=== PATIENT | female | born 1970 | race Caucasian/White ===

== ENCOUNTER 2022-08-07 09:15 | Day surgery (SDC) | payer BC, SELFPAY ==
[2022-08-01 09:48] VITALS: BMI 26.6
--- NOTE | 2022-08-04 13:20 | P.CONAN_ITS ---
Documented by User: Carly Fields NP 08/04/22 13:26 HPI - Anesthesia Eval Consult details Narrative: 51yo F for Colonoscopy Chronic opioid - fentanyl patch Hx of sudden onsent peripheral edema 12/2021. Negative cardiac w/u. Resolved with leg elevation. PMFSH Active Problems Active Problems: All Active Problems (Updated 08/01/22 @ 10:13 by Tatyana Valerio RN) Hemorrhoids (Acute) GI bleeding (Acute) Encounter for HCV screening test for low risk patient (Acute) Past Medical History Medical History Anxiety Depression Dizziness Heart murmur Hx of edema Hypertension Low back pain Myofascial pain Venous insufficiency Family History Family History Mother Ovarian cancer Heart attack Spinal stenosis Alzheimer disease Father Heart disease Renal failure Diabetes Surgical History Surgical History H/O shoulder surgery S/P section Social History Social History Do you presently have visiting nurse or other home services: No Unable to assess alcohol history related to: Unknown Patient Tobacco Use Status: Former Tobacco user Quit Date: 2011 Tobacco use type: Cigarette Use of substances other than those prescribed or required for medical reasons: No Have you been hit, kicked, punched, or otherwise hurt by someone within the past year? If so, by whom?: No Are you DNR?: No Advance Directives: No Advance Directives Information Provided: Yes Recently lost weight without trying: Yes How much weight loss: 24-33 pounds Eating poorly because of decreased appetite: Yes Nutrition screen score: 6 Meds Allergies Allergy/AdvReac Type Severity Reaction Status Date / Time Sulfa (Sulfonamide Allergy Severe HIVES Verified 08/01/22 09:46 Antibiotics) Home Medications Medication Instructions Recorded Confirmed Last Taken Type alprazolam 0.5 mg tablet 0.5 mg PO BID PRN Anxiety 07/15/22 08/01/22 Unknown History bupropion HCl 150 mg tablet,12 hr 150 mg PO QAM 07/15/22 08/01/22 Unknown History sustained-release diclofenac sodium 1 % topical gel g topical QID 07/15/22 Unknown History ethacrynic acid 25 mg tablet 25 mg PO BID PRN edema 07/15/22 08/01/22 Unknown History fentanyl 75 mcg/hr transdermal 0.25 patch topical Q OTHER DAY 07/15/22 08/01/22 Unknown History patch metoprolol succinate 100 mg 100 mg PO DAILY 07/15/22 08/01/22 Unknown History tablet,extended release 24 hr naloxone 4 mg/actuation nasal 0 spray intranasal 07/15/22 Unknown History spray (Narcan) venlafaxine 225 mg tablet,extended 225 mg PO DAILY 07/15/22 08/01/22 Unknown History release 24 hr Exam Exam Date and Time: August 04, 2022 1320 Height,Weight and Vital Signs: Height 5 ft 7 in Weight 77.111 kg Narrative Narrative: EKG 02/2022 NSR, good r wave progression, normal axis intervals, no ST-T wave changes ECHO 01/2022 1. LV size is normal 2. LV wall thickness is normal 3. Overall LV systolic function is low-normal with EF 50-55% 4. Diastolic filling pattern is normal 5. LA size is normal 6. RV systolic function is normal 7. No aortic stenosis 8. Trace mitral regurg 9. No evidence of pulmonary htn 10. No previous echo for comparison Assessment and Plan Assessment Anesthesia Assessment: Chart Reviewed Documented by User: Diane Amaya MD 08/07/22 12:01 [facility] Past Medical History Medical History Anxiety Depression Dizziness Heart murmur Hx of edema Hypertension Low back pain Myofascial pain Venous insufficiency Family History Family History Mother Ovarian cancer Heart attack Spinal stenosis Alzheimer disease Father Heart disease Renal failure Diabetes Surgical History Surgical History H/O shoulder surgery S/P section History of Problems with Anesthesia: No Social History Social History Do you presently have visiting nurse or other home services: No Unable to assess alcohol history related to: Unknown Patient Tobacco Use Status: Former Tobacco user Quit Date: 2011 Tobacco use type: Cigarette Use of substances other than those prescribed or required for medical reasons: No Have you been hit, kicked, punched, or otherwise hurt by someone within the past year? If so, by whom?: No Are you DNR?: No Advance Directives: No Advance Directives Information Provided: Yes Recently lost weight without trying: Yes How much weight loss: 24-33 pounds Eating poorly because of decreased appetite: Yes Nutrition screen score: 6 Meds Allergies Allergy/AdvReac Type Severity Reaction Status Date / Time Sulfa (Sulfonamide Allergy Severe HIVES Verified 08/01/22 09:46 Antibiotics) Home Medications Medication Instructions Recorded Confirmed Last Taken Type alprazolam 0.5 mg tablet 0.5 mg PO BID PRN Anxiety 07/15/22 08/01/22 Unknown History bupropion HCl 150 mg tablet,12 hr 150 mg PO QAM 07/15/22 08/01/22 Unknown History sustained-release diclofenac sodium 1 % topical gel g topical QID 07/15/22 Unknown History ethacrynic acid 25 mg tablet 25 mg PO BID PRN edema 07/15/22 08/01/22 Unknown History fentanyl 75 mcg/hr transdermal 0.25 patch topical Q OTHER DAY 07/15/22 08/01/22 Unknown History patch metoprolol succinate 100 mg 100 mg PO DAILY 07/15/22 08/01/22 Unknown History tablet,extended release 24 hr naloxone 4 mg/actuation nasal 0 spray intranasal 07/15/22 Unknown History spray (Narcan) venlafaxine 225 mg tablet,extended 225 mg PO DAILY 07/15/22 08/01/22 Unknown History release 24 hr Exam Airway Mallampati Class: II TM Dist: >3cm Neck ROM: Full Loose/Missing/Broken Teeth: No Heart: RRR Lungs: CTA Assessment and Plan Assessment Anesthesia Assessment: Anesthesia Plan Discussed Final Anesthetic Review History of Problems with Anesthesia: No NPO: Yes ASA Class: II Final Preanesthetic Review: Meds/Allgs Chart Reviewed, Consent Obtained/Reviewed and Anes Risks/Benef Reviewed Patient Risk: Low Procedure Risk: Low Anesthetic Plan Anesthetic Plan: MAC: Disposition: Standard PACU
[2022-08-07 09:49] VITALS: BP 121/68; PULSE 76; RESP 16; TEMP 37.3; O2SAT 99
[2022-08-07] MEDS: Lactated Ringers 1,000 ML 50 ML IVCONT (10:12)
--- NOTE | 2022-08-07 10:16 | MHC.SHP ---
Pre-Procedural Eval Section A Date of Service: 08/07/22 The History & Physical has been completed within 30 days and I have reviewed it.: Yes Section B Chief Complaint: Lower GI bleeding Allergies: Allergies Allergy/AdvReac Type Severity Reaction Status Date / Time Sulfa (Sulfonamide Allergy Severe HIVES Verified 08/01/22 09:46 Antibiotics) Plan Diagnosis/Plan: Unchanged I have reviewed the history and physical and performed a pertinent physical examination on my patient. No changes have occurred unless specified.
--- NOTE | 2022-08-07 10:21 | P.OP_ITS ---
Operative Note Operative Note Date of Service: 08/07/22 Narrative: Procedure: Colonoscopy Indication: Lower GI bleeding Endoscopist: Gayathri Livingston MD Anesthesia Provider: Dr Diane Amaya Anesthesia type: MAC Instrument: Olympus [id number]-[id number] Consent: Indication, risks vs benefits, and alternatives were discussed with the patient who gave written informed consent to proceed. EKG, pulse, pulse oximetry and blood pressure were monitored throughout the procedure. Please see anesthesia flowsheet. Procedure: The patient was brought to the procedure room and placed in the left lateral decubitus position. IV medications were administered by the anesthesia provider in attendance. A digital rectal exam was performed which was abnormal due to finding of hard palpable nodularity in the rectum. The colonoscope was then inserted through the anus and advanced through the colon to the cecum at 100 cm. Mucosa was carefully examined under high definition white light as the instrument was slowly withdrawn in a retrograde panoramic fashion. Retroflexion was performed in rectum. The procedure was somewhat difficult due to significant looping. 4 hand abdominal pressure was utilised to get to cecum. There were no immediate obvious complications. The quality of the prep was BBPS: 2+3+3 = adequate Withdrawal time 14 minutes. Limitations: No limitations. Findings: Mucosa: Large 6 cm villous friable mass seen in rectum from 2 to 8 cm. The mass was not obstructing and scope was easily traversed by it. Multiple cold forceps biopsies were taken. Abnormal mucosa with prominent lymphoid follicles with few erosions noted in rectosigmoid starting from 8 cm extending to 20 cm. Cold forceps biopsies were obtained. Protruding lesions: * 1 sessile polyp of size 2 mm in sigmoid colon. * Medium internal hemorrhoids [without] stigmata of recent bleeding. Impression: 1. Rectal mass (biopsy) 2. Abnormal mucosa in rectosigmoid (biopsy) 3. Total of 1 polyp removed from sigmoid colon. 4. Internal hemorrhoids Recommendations: - Appearance highly suspicious for a malignant mass. Follow path results. - Urgent surgery referral has been requested. Findings were reviewed with the patient thoroughly.
[2022-08-07 11:20] VITALS: BP 102/51; PULSE 82; RESP 16; TEMP 36.3; O2SAT 99
[2022-08-07 11:35] VITALS: BP 95/34; PULSE 77; RESP 16; TEMP 36.7; O2SAT 99
[2022-08-07 11:50] VITALS: BP 112/59; PULSE 77; RESP 16; TEMP 36.7; O2SAT 99
== END 2022-08-07 12:20 | disposition home or self-care (01) ==
PROVIDERS: PCP Internal Medicine; Visit Provider Internal Medicine
PROC: 0DJD8ZZ Inspection of Lower Intestinal Tract, Via Natural or Artificial Opening Endoscopic (ICD-10-PCS; CPT 45378; principal; 2022-08-07 10:30)
DX: K92.2 Gastrointestinal hemorrhage, unspecified (principal); D01.2 Carcinoma in situ of rectum; K63.89 Other specified diseases of intestine; K63.5 Polyp of colon; K64.8 Other hemorrhoids; Z88.2 Allergy status to sulfonamides
CPT/HCPCS: 45380; 88305; 88341; 88342; J2250

== ENCOUNTER → 2022-08-13 10:15 | Outpatient (BNVA) | payer BC, SELFPAY | PROVIDERS: PCP Internal Medicine; Referring Provider Internal Medicine; Visit Provider Surgery | DX: K62.89 Other specified diseases of anus and rectum (principal) | CPT/HCPCS: 46600 ==

== ENCOUNTER 2022-08-20 13:47 | Outpatient (REF) | payer BC, SELFPAY ==
[2022-08-20 14:41] LABS: Hematocrit 38.7 % (37.0-47.0); Hemoglobin 12.5 g/dl (12.0-16.0); Mean Corpuscular HGB Conc 32.3 g/dl (31.0-35.0); Mean Corpuscular Hemoglobin 29.7 pg (27.0-33.0); Mean Corpuscular Volume 91.9 fL (80.0-98.0); Mean Platelet Volume 10.1 fL (9.4-12.3); Platelet Count 291 X10*3/uL (160-400); Red Blood Count 4.21 X10*6/uL (4.20-5.50); Red Cell Distribution Width 12.3 % (11.0-16.0); White Blood Count 6.4 X10*3/uL (4.8-10.8)
[2022-08-20 15:09] LABS: Iron 38 mcg/dL (30-160); Percent Iron Saturation 12 % (15-50); Total Iron Binding Capacity 313 mcg/dL (228-428); Unsaturated Iron Binding 275 ug/dL
[2022-08-20 15:29] LABS: Ferritin 79 ng/mL (10-250)
[2022-08-22 09:16] LABS: HIV AB/AG Nonreactive (Nonreactive); HIV Num 1 0.08 S/CO (0.00-0.99); ~HepC Num1 0.13 S/CO (0.00-0.79); ~Hepatitis C Antibody Nonreactive (Nonreactive)
== END 2022-08-20 13:48 | disposition home or self-care (01) ==
LOC: HO.LAB 13:47
PROVIDERS: PCP Internal Medicine; Visit Provider Internal Medicine
DX: Z11.59 Encounter for screening for other viral diseases (principal); Z11.4 Encounter for screening for human immunodeficiency virus [HIV]; K92.2 Gastrointestinal hemorrhage, unspecified; D01.3 Carcinoma in situ of anus and anal canal
CPT/HCPCS: 36415; 82728; 83540; 85027; 86803; 87389

== ENCOUNTER 2022-08-27 14:26 | Outpatient (REF) | payer BC, SELFPAY ==
[2022-08-27 15:57] LABS: Blood Urea Nitrogen 15 mg/dL (9-16); Carcinoembryonic Antigen < 1.73 ng/mL; Estimated Glomerular Filt Rate > 60
== END 2022-08-27 14:27 | disposition home or self-care (01) ==
LOC: HO.LAB 14:26
PROVIDERS: PCP Internal Medicine; Visit Provider Surgery
DX: K62.89 Other specified diseases of anus and rectum (principal); D01.3 Carcinoma in situ of anus and anal canal
CPT/HCPCS: 36415; 82378; 82565; 84520

== ENCOUNTER 2022-08-28 13:05 | Outpatient (REF) | payer BC, SELFPAY ==
--- NOTE | ~2022-08-28 | CT_ITS ---
Indication: Disease of the anus and rectum. EXAMINATION: Contrast enhanced CT of the chest abdomen pelvis. This CT examination was performed using dose optimization techniques as appropriate, variously including the following: *Automated exposure control *Adjustment of mA and/or kV according to patient size (this includes techniques or standardized protocols for targeted exams where dose is matched to indication/reason for exam; i.e. extremities or head) *Use of iterative reconstruction technique. Radiation dose 484 and 152. Axial imaging with coronal and sagittal reformatted images. 85 mL Omnipaque 350. Findings; The thoracic inlet shows nodular appearing thyroid. Ultrasound recommended. Otherwise the thoracic inlet is within normal limits. Some shotty nodes in the axillary regions are noted. No bulky adenopathy. Centrally coronary calcification is seen. There is no bulky adenopathy here. Imaging of the lung olvera. Right lung; There is no significant infiltrate or effusion here. Granuloma calcified in the right upper lung is noted. Atelectasis or scarring in the midlung anterior on the right. Pleural-based nodule measuring 3 mm on image 351 of series 7. 3 mm nodule on image 358. Mild right basilar atelectasis or scarring. Other small 1 to 2 mm nodules are noted. Left lung; No significant infiltrate or effusion. Mild left basilar scarring or atelectasis. The bone windows in the chest does not show suspicion for a bony lesion. Upper abdomen; Liver be within normal limits. The spleen is within normal limits. The adrenals show some minimal nodularity in the left adrenal. 5 mm. May be incidental. Attention to follow-up. There is also mild fullness of the left adrenal more superiorly. An underlying nodule here cannot be excluded measuring 8 mm. The kidneys are in the nephrographic phase. The region the pancreas is felt to be within normal limits. The adjacent spleen partially calcified rounded structure measuring 1.7 x 1.7 cm may represent aneurysmal change of the splenic artery. Bladder is decompressed. The bowel pattern is show fullness in soft tissue in the region of the rectosigmoid.. Lesion here of course could not be excluded. The bowel pattern is otherwise nonobstructing. Colonic stool is noted moderate. The abdominal wall is felt to be within normal limits. Mildly prominent uterine structure for age in the pelvis. No free fluid. There is no bulky adenopathy. There are a few mildly prominent nodes. In the left pelvic sidewall node measuring 6 mm. There are also some prominent nodes in the external iliac chain on the left. There is a density on image 68 of 101 on the left which may well be related to the uterine ligament. This could represent ovarian structure in the spleen. Some mildly prominent adenopathy in the right iliac chain but again no pathologic enlargement is present at this time. In the perirectal region several small rounded areas of density may represent nodes. For example on image 75 there is a 6 mm structure which likely represents a small lymph node. Otherwise the vasculature is felt to be intact. Review of the bone windows demonstrates a small sclerotic lesion in the left iliac bone. There is also a sclerotic region in the right iliac bone. This measures 1.2 cm. Eti[address] indeterminate here. CT/CT abdomen pelvis w IV con IMPRESSION: Findings as described in detail above. The lungs some small nodules are noted. These may well be incidental. Of course early metastatic disease cannot be excluded. Attention to follow-up In the abdomen pelvis soft tissue fullness in the rectosigmoid could represent tumor. Correlation recommended clinically. There are also some nodes in the pelvis as described. Iliac perirectal fat and obturator regions. These are most prominent in the iliac regions but again not felt to be pathologically large cyst at this time. Still early metastatic disease in these areas needs to be considered and cannot be excluded. Mildly nodular left adrenal gland again may be incidental. Again early malignancy or metastatic disease cannot be excluded. Attention to follow-up. A few sclerotic lesions in the iliac bones of uncertain etiology. Again may be incidental. But see cannot be excluded... Consider bone scan if further evaluation is warranted at this time versus follow-up Calcified vascular structure adjacent the spleen may represent a 1.7 cm partially calcified splenic artery aneurysm. Recommend interventional radiology consultation
[2022-08-28] MEDS: iohexoL 350 MG/ML 100 ML INFUS..BTL IV (13:55)
== END 2022-08-28 13:06 | disposition home or self-care (01) ==
LOC: HO.CT 13:05
PROVIDERS: Visit Provider Surgery
DX: K62.89 Other specified diseases of anus and rectum (principal); R91.8 Other nonspecific abnormal finding of lung field; R93.89 Abnormal findings on diagnostic imaging of other specified body structures; R93.5 Abnormal findings on diagnostic imaging of other abdominal regions, including retroperitoneum
CPT/HCPCS: 71260; 74177; Q9967

== ENCOUNTER 2023-08-10 13:28 | Outpatient (AMB) | payer BC, SELFPAY ==
--- NOTE | 2023-08-10 13:33 | A.OFFVIS_ITS ---
Intake Vital Signs 08/10/23 13:36 Height 5 ft 7 in Weight 163 lb 2.273 oz BMI 25.5 BP 109/61 Blood Pressure Location Lt brachial Position Sitting Pulse 90 Intake Visit Reasons: follow up AIN grade III (+) Positive for C-Diff Intake Note: Diane presents in the office as a follow up. CC: She would like to discuss concerns with the Dr. 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 Initial visit: Patient states she has had hemorrhoids since bearing children and has noted intermittent bleeding. For the past 2y she has noted ext hemorrhoid that she can palpate. Now for a year, she has been having more symptoms - increased pain on defecation and bleeding. Unless her stools are very soft, she has notices blood on top of the stool as well as on wiping. No rectal pain on sitting or laying down. No hx of anal trauma. No fam hx of CRC. She has never had a colonoscopy. Colonoscopy 07/2022: Mucosa: Large 6 cm villous friable mass seen in rectum from 2 to 8 cm. The mass was not obstructing and scope was easily traversed by it. Multiple cold forceps biopsies were taken. Abnormal mucosa with prominent lymphoid follicles with few erosions noted in rectosigmoid starting from 8 cm extending to 20 cm. Cold forceps biopsies were obtained. Protruding lesions: * 1 sessile polyp of size 2 mm in sigmoid colon. Cold forceps polypectomy was performed. The polyp was vompletely removed and retrieved. * Medium internal hemorrhoids without stigmata of recent bleeding. Path: A.? Colon, sigmoid, polypectomy:? Hyperplastic mucosal polyp. B.? Colon, sigmoid, biopsy:? Colonic mucosa with prominent lymphoid aggregates; no dysplasia seen. C.? 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 Today: Symptoms unchanged from before. She had an MRI pelvis for further characterization of this lesion, last Thursday. Results not available yet. Patient is quite anxious about prognosis and treatment options. 08/10/23: Pt returns to follow up after being managed at [facility] earlier this year for what was determined to be anal SCC. Was referred to [facility] for tx. Had chemo-XRT in November 2022. Gets followed by Dr Epstein (Onc) and Dr Luna (Rad-Onc). Also sees Dr Krishnamurthy from colorectal ca for surveillance. Pt here today primarily for fecal incontinence. Reports watery BMs with strong odor x multiple times a day that started in June - was found to have C Diff. Took PO Vancomycin x 2 weeks which resolved the sx. Prior the CDI, had fecal incontinence that started in February as occasional episodes but now notices it on a daily basis. Unable to leave home without dep ends which she changes 7-8 times a day. No blood in stool. Discharge or defecation is not painful. Per documentation, had anoscopy in February 2023 with colorectal that did not show any residual disease. She also reports having an upcoming CT through Onc next month. [facility] Medical History Anxiety Depression Dizziness Heart murmur Hx of edema Hypertension Low back pain Myofascial pain Venous insufficiency Surgical History H/O shoulder surgery S/P section Family History Mother Ovarian cancer Heart attack Spinal stenosis Alzheimer disease Father Heart disease Renal failure Diabetes Social History Do you presently have visiting nurse or other home services: No Unable to assess alcohol history related to: Unknown Patient Tobacco Use Status: Former Tobacco user Quit Date: 2011 Tobacco use type: Cigarette Review of Systems Const All systems reviewed & are unremarkable except as noted in HPI and below Physical Exam Vital Signs: Last Vital Signs Pulse 90 08/10/23 13:36 BP 109/61 08/10/23 13:36 BMI result Body Mass Index 25.5 Gen appear: No acute distress, well nourished HEENT: no icterus, no cervical lymphadenopathy Chest: No overt resp distress CVS: S1/S2, regular Abd: soft, nontender, nondistended Rectal: pt declines Psych: Stable affect, answering questions appropriately Neuro: A/Ox3 noted to move all extremities spontaneously Ext: no peripheral edema Assessment & Plan Assessment & Plan (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 Typically radiation therapy is sphincter sparing however given how low her tumor was (2 cm from anal verge) could have been affected (rad onc notes not available) other Ddx would be rectal hypersensitivity although that typically leads to urge incontinence and not passive FI; and radiation proctitis although typically assoc with urgency and bleeding. Management would mostly be directed towards symptomatic management with bulking agents, antidiarrheals and timed rectal evacuation. Plan: - Start soluble fiber such as psyllium or citrucel/metamucil - 1tsp mixed in water to increase to 1tbsp after a week - Timed enema in AM to empty out rectum - can even be used on certain days when pt anticipates to be out and about - Loperamide 1-2mg PO in AM - pt advised to be very careful and slow to titrate this to effect - She was also encouraged to discuss this with colorectal surgeon and Rad- oncologist Follow up in 3 months Coding Level of Care Code Est Pt Level 4 (98885) Diagnoses Anal squamous cell carcinoma C21.0 Radiation adverse effect T66.XXXA Fecal incontinence R15.9
[2023-08-10 13:36] VITALS: BP 109/61; PULSE 90; BMI 25.5
== END 2023-08-10 15:41 | disposition home or self-care (01) ==
PROVIDERS: PCP Internal Medicine; Visit Provider Internal Medicine
DX: C21.0 Malignant neoplasm of anus, unspecified (principal); T66.XXXA Radiation sickness, unspecified, initial encounter; R15.9 Full incontinence of feces
CPT/HCPCS: 99214

== ENCOUNTER → 2023-08-10 13:28 | Outpatient (BNVA) | payer BC, SELFPAY | PROVIDERS: PCP Internal Medicine; Visit Provider Internal Medicine ==